=== PATIENT | female | born 1985 | race Caucasian/White ===

== ENCOUNTER → 2017-07-14 | Outpatient (CLI) | payer OTHER ==
[~2017-07-14] MED LIST: BUPR100CR PO; SERO25TA PO
== END ==
LOC: HPND 10:31
PROVIDERS: ATTEND Obstetrics & Gynecology
DX: O99.322 Drug use complicating pregnancy, second trimester (principal); O99.332 Smoking (tobacco) complicating pregnancy, second trimester; O09.292 Supervision of pregnancy with other poor reproductive or obstetric history, second trimester
CPT/HCPCS: 76811; 76825; 76827; 93325

== ENCOUNTER → 2017-08-17 | Outpatient (CLI) | payer OTHER | LOC: HPND 09:59 | PROVIDERS: ATTEND Obstetrics & Gynecology | DX: O99.322 Drug use complicating pregnancy, second trimester (principal); O09.292 Supervision of pregnancy with other poor reproductive or obstetric history, second trimester | CPT/HCPCS: 76816 ==

== ENCOUNTER 2017-09-20 18:46 | Inpatient (IN) ==
[2017-09-20] MEDS ORDERED: Betamethasone Sod Phos/Acetate Inj 30 MG/5 ML Vial IM ONE (20:11)
[2017-09-20] MEDS ORDERED: Acetaminophen 325 MG Tablet PO PRN (20:11)
[2017-09-20] MEDS ORDERED: Zolpidem Tartrate 5 MG Tablet PO PRN (20:11)
[2017-09-20] MEDS ORDERED: Docusate Sodium 100 MG Capsule PO PRN (20:11)
[2017-09-20] MEDS ORDERED: Azithromycin 250 MG Tablet PO ONE ×2 (20:11→21:45)
--- NOTE | 2017-09-20 20:29 | P.HPOB ---
History of Present Illness Primary Care Physician: NOT REQUIRED Chief Complaint: water broke History of Present Illness: Pt is a 31yr old at 33 weeks and 0 days who presented to the ED complaining of her water breaking. She states around 12 pm this afternoon, she felt baby move and saw a gush a clear fluid come down. She was seen at the ED in [place] where it was confirmed that her membranes had ruptured. She signed out AMA and came to [facility]. Pt has a history of premature labor with 2 or her 3 past deliveries, with 2 babies requiring NICU stay. Pt also has a history of Opioid use, currently taking Subutex (buprenorphine). Pt is also Hep C+, not treated. Pt has limited care at [facility], and plans to give the baby up for adoption. An adoptive family has already been selected and are advised of her water breaking. US today, showed baby is head down, records are being obtained. During this , pt has been taking phenegran for intractable nausea and vomiting. Pt denies any abnormal or bloody discharge, contractions, fever, headaches, N/V today. PT also denies burning with urination, but states increased frequency. Weeks Gestation:: 33 Para: 5 : 3 Total # of Miscarriage(s): 1 - Inpatient Certification If this patient has been admitted as an Inpatient: I certify that the inpatient services were ordered in accordance with Medicare regulations governing the order. This includes certification that hospital inpatient services are reasonable and necessary and in the case of services not specified as inpatient-only under 42 CFR 419.22(n), that they are appropriately provided as inpatient services in accordance to with the 2-midnight benchmark under 43 CFR 412.3(e) Plans for Post Hospital Care: Home Review of Systems Constitutional: Denies chills, Denies fever(s), Denies headache(s), Denies night sweats, Denies weakness Eyes: Denies blurry vision, Denies change in vision, Denies double vision Cardiovascular: Denies chest pain, Denies excessive sweating, Denies fainting, Denies fast heart rate, Denies radiating jaw, neck or arm pain, Denies rapid, pounding, or irregular heartbeat, Denies shortness of breath Respiratory: Reports cough, Denies chest congestion, Denies pain on inspiration , Denies shortness of breath, Denies wheezing Gastrointestinal: Reports constipation, Reports vomiting, Denies abdominal pain , Denies cramping, Denies loose stools, Denies nausea, Denies vomiting blood Genitourinary: Denies blood in urine, Denies painful urination, Denies urinary incontinence, Denies vaginal discharge Musculoskeletal: Reports back pain, Denies abnormal walking, Denies body aches, Denies joint pain, Denies muscle weakness, Denies numbness, Denies tingling Neurologic: Denies abnormal walking, Denies dizziness, Denies tingling, Denies tremor(s), Denies weakness Psychiatric: Reports abnormal sleep pattern Endocrine: Reports increased urination, Denies excessive sweating Allergic/Immunologic: Denies wheezing PMFSH - Medical History Medical History: Medical History (Last Updated 09/20/17 @ 20:27 by Morelia Miller) Gallbladder disease Hepatitis C - Surgical History Surgical History: Surgical History (Last Updated 09/20/17 @ 20:27 by Morelia Miller) Hx of cholecystectomy - Tobacco History Smoking Status: Heavy tobacco smoker Tobacco Type: Cigarettes Packs Per Day: 1 - Alcohol History How Often Do You Have a Drink Containing Alcohol: Monthly or less - Substance Use History Substance History: Active Abuse - Substance Use Type Marijuana Status: Active Route Used: By Mouth Opiates Status: Active Route Used: Intravenously - Travel History Recent Travel in the [place] Within the Last 8 Weeks: No Recent Travel Out of the Country Within the Last 8 Weeks: No Medications and Allergies Allergies Allergy/AdvReac Type Severity Reaction Status Date / Time amoxicillin Allergy Severe Anaphylaxis Verified 09/20/17 20:07 penicillin G Allergy Severe Anaphylaxis Verified 09/20/17 20:07 Home Medications Medication Instructions Recorded Confirmed Type [id number] 1 tab PO DAILY 09/20/17 09/20/17 History [ Gummy] buprenorphine HCl 8 mg SUBLINGUAL DAILY 09/20/17 09/20/17 History Exam Vital signs: Vital Signs 09/20/17 19:38 Temperature 98.8 F Pulse Rate 87 Respiratory Rate 18 Blood Pressure 115/65 Intake & Output 09/20/17 09/20/17 09/21/17 06:59 18:59 06:59 Weight 70.307 kg Narrative: GENERAL: Well-nourished, well-developed patient. SKIN: Warm and dry. HEAD: Normocephalic and atraumatic. EYES: No scleral icterus. No injection or drainage. ENT: No nasal drainage noted. Mucous membranes pink. Airway patent. NECK: Supple, trachea midline. No JVD. CARDIOVASCULAR: Regular rate and rhythm without murmurs, gallops, or rubs. RESPIRATORY: Breath sounds equal bilaterally. No accessory muscle use. ABDOMEN/GI: Abdomen soft, non-tender, bowel sounds present, no rebound, no guarding Gravid to [33] weeks size Fundal Height: [33] GENITOURINARY: Cervix: [-] Dilatation: [close] Effacement: [thick and high] Station: [-3] Presentation: [Cephalic] Membranes: [ruptured] Uterine Contractions: [N] FHT's: Category: [1] Baseline: [145] Reactive: [Y] Variability: [Moderate] Decels: [N] EXTREMITIES: No cyanosis or edema. BACK: Nontender without obvious deformity. No CVA tenderness. NEUROLOGICAL: Awake and alert. Motor and sensory grossly within normal limits. Five out of 5 muscle strength in all muscle groups. Normal speech. Results - Labs CBC & Chem 7: 09/20/17 20:48 09/20/17 20:48 Caprini VTE Risk Assessment Caprini VTE Risk Assessment: No/Low Risk (score <= 1) Caprini Risk Assessment Model: Point Value = 1 Point Value = 2 Point Value = 3 Point Value = 5 Age 41-60 Minor surgery BMI > 25 kg/m2 Swollen legs Varicose veins or History of unexplained or recurrent spontaneous Oral contraceptives or hormone replacement Sepsis (< 1 month) Serious lung disease, including pneumonia (< 1 month) Abnormal pulmonary function Acute myocardial infarction Congestive heart failure (< 1 month) History of inflammatory bowel disease Medical patient at bed rest Age 61-74 Arthroscopic surgery Major open surgery (> 45 min) Laparoscopic surgery (> 45 min) Malignancy Confined to bed (> 72 hours) Immobilizing plaster cast Central venous access Age >= 75 History of VTE Family history of VTE Factor V Leiden Prothrombin [id number] Lupus anticoagulant Anticardiolipin antibodies Elevated serum homocysteine Heparin-induced thrombocytopenia Other congenital or acquired thrombophilia Stroke (< 1 month) Elective arthroplasty Hip, pelvis, or leg fracture Acute spinal cord injury (< 1 month) Prophylaxis Regimen: Total Risk Factor Score Risk Level Prophylaxis Regimen 0-1 Low Early ambulation 2 Moderate Order ONE of the following: *Sequential Compression Device (SCD) *Heparin 5000 units SQ BID 3-4 Higher Order ONE of the following medications: *Heparin 5000 units SQ TID *Enoxaparin/Lovenox 40 mg SQ daily (WT < 150 kg, CrCl > 30 mL/min) *Enoxaparin/Lovenox 30 mg SQ daily (WT < 150 kg, CrCl > 10-29 mL/min) *Enoxaparin/Lovenox 30 mg SQ BID (WT < 150 kg, CrCl > 30 mL/min) AND/OR *Sequential Compression Device (SCD) 5 or more Highest Order ONE of the following medications: *Heparin 5000 units SQ TID (Preferred with Epidurals) *Enoxaparin/Lovenox 40 mg SQ daily (WT < 150 kg, CrCl > 30 mL/min) *Enoxaparin/Lovenox 30 mg SQ daily (WT < 150 kg, CrCl > 10-29 mL/min) *Enoxaparin/Lovenox 30 mg SQ BID (WT < 150 kg, CrCl > 30 mL/min) AND *Sequential Compression Device (SCD) Assessment and Plan - Diagnosis (1) premature rupture of membranes (PPROM) with unknown onset of labor Code(s): O42.919 - premature rupture of membranes, unspecified as to length of time between rupture and onset of labor, unspecified trimester Status: Acute (2) Smoking (tobacco) complicating , third trimester Code(s): O99.333 - Smoking (tobacco) complicating , third trimester Status: Acute (3) Opioid abuse Code(s): F11.10 - Opioid abuse, uncomplicated Status: Acute (4) Hx of pre-term labor Code(s): Z87.51 - Personal history of pre-term labor Status: Chronic (5) Hx of hepatitis C Code(s): Z86.19 - Personal history of other infectious and parasitic diseases Status: Chronic - Plan 31 yr old at 33 /0 admitted for premature PROM w/o onset of labor.Hx of opioid use IV and smoking during this . Hep C+. Possible meconium fluid. Limited care - Azithromycin 1 gr PO once - Clindamycin 900 mg q8 48 Hrs IV - Gentamicin 5 mg/kg (350mg) daily IV 48 hrs - Betamethasone 12mg q24hrs x2 - Following IV therapy will continue with Clindamycin 300 mg PO for 5 days - F/U labs: GBS, UA, GC/Ch, UDS, CMP, CBC, Hep Panel - Ob limited scan tomorrow - Consult MFM: Wednesday - Phenergan PRN for Nausea - Nicotine patch - Suboxone 8mg daily - Monitor for signs of infection - Monitor for signs of labor, monitoring D/w Dr. Fam and Dr. Winter
[2017-09-20 21:10] LABS: Bacteria,Urine Rare /hpf; Bilirubin,Urine Negative (Negative); Clarity,Urine Clear (Clear); Color,Urine Yellow (Yellw/Straw); Glucose,Urine (UA) Negative (Negative); Leukocyte Esterase,Urine Negative (Negative); Mucus,Urine Few /lpf (Occasional); Nitrite,Urine Negative (Negative); Specific Gravity,Urine 1.006 (1.002-1.035); Squamous Epithelial Cell,Urine 1 /hpf (0-5)
[2017-09-20 21:13] LABS: Amphetamine Screen,Urine Pos (Neg); Barbiturate Screen,Urine Neg (Neg); Cannabinoid Screen,Urine Neg (Neg); Cocaine Screen,Urine Neg (Neg)
[2017-09-20 21:15] LABS: Opiate Screen,Urine Neg (Neg)
[2017-09-20 21:18] LABS: Baso # (Auto) 0.1 th/mm3 (0.0-0.2); Baso % (Auto) 0.8 % (0.0-2.0); Eos # (Auto) 0.1 th/mm3 (0.0-0.4); Eos % (Auto) 0.9 % (0.0-4.0); Hematocrit 33.4 % (35.0-46.0); Hemoglobin 10.4 gm/dL (11.6-15.3); Lymph % (Auto) 25.9 % (9.0-44.0); Mean Corpuscular HGB Conc 31.2 % (32.0-36.0); Mean Corpuscular Hemoglobin 24.3 pg (27.0-34.0); Mean Corpuscular Volume 77.8 fL (80.0-100.0); Mean Platelet Volume 8.5 fL (7.0-11.0); Mono % (Auto) 6.4 % (0.0-8.0); Neut # (Auto) 10.1 th/mm3 (1.8-7.7); Platelet Count 423 th/mm3 (150-450); Red Blood Count 4.29 mil/mm3 (4.00-5.30); White Blood Count 15.3 th/mm3 (4.0-11.0)
[2017-09-20 21:32] LABS: Alanine Aminotransferase 47 U/L (10-53); Albumin 2.3 g/dL (3.4-5.0); Anion Gap 11 meq/L (5-15); Aspartate Aminotransferase 44 U/L (15-37); Blood Urea Nitrogen 8 mg/dL (7-18); Calcium 9.2 mg/dL (8.5-10.1); Carbon Dioxide 24.3 meq/L (21.0-32.0); Chloride 102 meq/L (98-107); Glomerular Filtration Rate 86 mL/min (>89); Glucose,Random 97 mg/dL (74-106); Potassium 3.8 meq/L (3.5-5.1); Sodium 137 meq/L (136-145)
[2017-09-20 21:35] LABS: Alkaline Phosphatase 189 U/L (45-117); Total Protein 7.3 g/dL (6.4-8.2)
[2017-09-20 21:54] LABS: Platelet Estimate Normal (Normal); Platelet Morphology Normal (Normal)
[2017-09-20] MEDS ORDERED: Calcium Chloride Inj 1 GM in Sodium Chlor 0.9% Inj 100 ML IV.SIG ONE (22:00)
[2017-09-20 22:55] LABS: Hepatitis A IgM Antibody Nonreactive (Nonreactive); Hepatitits B Surface Antigen Nonreactive (Nonreactive)
[2017-09-20] MEDS ORDERED: SODIUM CHLOR 0.9% IV.SIG SCH (23:00)
[2017-09-20] MEDS ORDERED: GENTAMICIN IV.SIG SCH (23:00)
[2017-09-20] MEDS: Clindamycin 900 mg/NS Premix 900 MG/50 ML PIGGYBACK IV.SIG SCH (23:08)
[2017-09-21] MEDS: Clindamycin 900 mg/NS Premix 900 MG/50 ML PIGGYBACK IV.SIG SCH ×2 (06:11→13:57)
[2017-09-21 08:19] LABS: Baso # (Auto) 0.1 th/mm3 (0.0-0.2); Baso % (Auto) 0.6 % (0.0-2.0); Hematocrit 28.2 % (35.0-46.0); Lymph # (Auto) 2.2 th/mm3 (1.0-4.8); Lymph % (Auto) 16.9 % (9.0-44.0); Mean Corpuscular HGB Conc 31.7 % (32.0-36.0); Mean Corpuscular Hemoglobin 24.2 pg (27.0-34.0); Mean Corpuscular Volume 76.4 fL (80.0-100.0); Mean Platelet Volume 7.9 fL (7.0-11.0); Mono # (Auto) 0.3 th/mm3 (0.0-0.9); Mono % (Auto) 2.2 % (0.0-8.0); Neut # (Auto) 10.4 th/mm3 (1.8-7.7); Neut % (Auto) 80.3 % (16.0-70.0); Platelet Count 390 th/mm3 (150-450); Red Cell Distribution Width 17.4 % (11.6-17.2)
[2017-09-21] MEDS ORDERED: [UNRECOGNIZED DRUG - OTHER] PO SCH (09:00)
[2017-09-21] MEDS ORDERED: Prenatal Vit/Ca/Iron/Folic Acid Tablet PO SCH (09:00)
[2017-09-21] MEDS ORDERED: ALPRAZolam 0.25 MG Tablet PO ONE (10:45)
[2017-09-21] MEDS ORDERED: LORazepam 0.5 MG Tablet PO ONE (10:52)
--- NOTE | 2017-09-21 10:55 | P.PN ---
Subjective Interval history: Patient is a 31 year-old with IUP at 33.1. The patient was admitted for PPROM. The patient is threatening to leave against medical advice is she is not allowed to leave to smoke a cigarette. I discussed with the patient that I am not allowed to let her leave to smoke as this is against hospital policy. She stated she would just leave against medical advice if we don't allow her to leave. She stated she would just leave in her gown with her IV. I informed her the IV would be removed prior to leaving the hospital. I discussed she would need to be readmitted and leaving against medical advice is not in her best interest or that of the fetus. I discussed that risks of leaving against medical advice include but are not limited to maternal or , brain damage, or other adverse outcomes. The patient stated she "didn't care" and refused to have any further discussion. I offered her antianxiety medication which she is refusing at this time. Physical Exam Vital signs: Vital Signs 09/20/17 19:38 09/20/17 21:13 09/20/17 22:00 Temperature 98.8 F 98.7 F Pulse Rate 87 83 Respiratory Rate 18 18 18 Blood Pressure 115/65 117/74 09/21/17 00:00 09/21/17 00:34 09/21/17 01:59 Temperature Pulse Rate 67 Respiratory Rate 18 1 L 18 Blood Pressure 106/63 09/21/17 03:00 09/21/17 04:00 09/21/17 05:00 Temperature Pulse Rate Respiratory Rate 18 18 18 Blood Pressure 09/21/17 05:10 09/21/17 05:11 09/21/17 09:01 Temperature 97.9 F 98.0 F Pulse Rate 66 78 Respiratory Rate 18 18 Blood Pressure 95/57 L 106/64 Intake & Output 09/20/17 09/21/17 09/21/17 18:59 06:59 18:59 Intake Total 2157.75 / 2157.75 Balance 2157.75 / 2157.75 Weight 70.307 kg Intake: IV 2157.75 / 2157.75 LR 1000 mL Inj 1,000 ML @ 125 2000 / 2000 mls/hr IV.CONT .Q8H [facility] Rx#: [id number] Cleocin 900 mg/NS Premix 900 mg 50 / 50 In 50 ml @ 100 mls/hr IV.SIG Q8H [facility] Rx#:[id number] Gentamicin Inj 350 MG In NS Inj 108.75 / 108.75 100 ML @ 100 mls/hr IV.SIG Q24H [facility] Rx#:[id number] Results - Labs CBC & Chem 7: 09/21/17 07:55 09/20/17 20:48 Laboratory Results - last 24 hr 09/20/17 09/20/17 09/20/17 20:24 20:24 20:24 WBC RBC Hgb Hct MCV MCH MCHC RDW Plt Count MPV Prelim Diff (Auto) Neut % (Auto) Lymph % (Auto) [place] % (Auto) Eos % (Auto) Baso % (Auto) Neut # (Auto) Lymph # (Auto) [place] # (Auto) Eos # (Auto) Baso # (Auto) WBC Differential Diff Scan Differential Comment Platelet Estimate Platelet Morphology Sodium Potassium Chloride Carbon Dioxide Anion Gap BUN Creatinine Estimated GFR Random Glucose Calcium Total Bilirubin AST ALT Alkaline Phosphatase Total Protein Albumin Urine Color Yellow Urine Clarity Clear Urine pH 7.0 Ur Specific [place] 1.006 Urine Protein Negative Urine Glucose (UA) Negative Urine Ketones Negative Urine Occult Blood Negative Urine Nitrate Negative Urine Bilirubin Negative Urine Urobilinogen Less than 2 Ur Leukocyte Esterase Negative Urine RBC 1 Urine WBC 1 Ur Squamous Epith Cells 1 Urine Bacteria Rare H Urine Mucus Few H Micro UA Comment Culture not ind Urine Culture Comments Culture not ind Urine Opiates Screen Neg Ur Barbiturates Screen Neg Ur Amphetamines Screen Pos H U Benzodiazepines Scrn Neg Urine Cocaine Screen Neg U Cannabinoids Screen Neg Chlam trachomat DNA PCR Not detected Hepatitis A IgM Ab Hep Bs Antigen Hep B Core IgM Ab Hep C IgG Ab N.gonorrhoeae DNA (PCR) Not detected Group B Strep (PCR) 09/20/17 09/20/17 09/20/17 20:48 20:48 20:48 WBC 15.3 H RBC 4.29 Hgb 10.4 L Hct 33.4 L MCV 77.8 L MCH 24.3 L MCHC 31.2 L RDW 17.0 Plt Count 423 MPV 8.5 Prelim Diff (Auto) Slide review pending Neut % (Auto) 66.0 Lymph % (Auto) 25.9 [place] % (Auto) 6.4 Eos % (Auto) 0.9 Baso % (Auto) 0.8 Neut # (Auto) 10.1 H Lymph # (Auto) 4.0 [place] # (Auto) 1.0 H Eos # (Auto) 0.1 Baso # (Auto) 0.1 WBC Differential . Diff Scan Auto diff confirmed Differential Comment . Platelet Estimate Normal Platelet Morphology Normal Sodium 137 Potassium 3.8 Chloride 102 Carbon Dioxide 24.3 Anion Gap 11 BUN 8 Creatinine 0.79 Estimated GFR 86 L Random Glucose 97 Calcium 9.2 Total Bilirubin 0.4 AST 44 H ALT 47 Alkaline Phosphatase 189 H Total Protein 7.3 Albumin 2.3 L Urine Color Urine Clarity Urine pH Ur Specific [place] Urine Protein Urine Glucose (UA) Urine Ketones Urine Occult Blood Urine Nitrate Urine Bilirubin Urine Urobilinogen Ur Leukocyte Esterase Urine RBC Urine WBC Ur Squamous Epith Cells Urine Bacteria Urine Mucus Micro UA Comment Urine Culture Comments Urine Opiates Screen Ur Barbiturates Screen Ur Amphetamines Screen U Benzodiazepines Scrn Urine Cocaine Screen U Cannabinoids Screen Chlam trachomat DNA PCR Hepatitis A IgM Ab Nonreactive Hep Bs Antigen Nonreactive Hep B Core IgM Ab Nonreactive Hep C IgG Ab Reactive H N.gonorrhoeae DNA (PCR) Group B Strep (PCR) 09/20/17 09/21/17 21:15 07:55 WBC 13.0 H RBC 3.70 L Hgb 9.0 L Hct 28.2 L MCV 76.4 L MCH 24.2 L MCHC 31.7 L RDW 17.4 H Plt Count 390 MPV 7.9 Prelim Diff (Auto) Neut % (Auto) 80.3 H Lymph % (Auto) 16.9 [place] % (Auto) 2.2 Eos % (Auto) 0.0 Baso % (Auto) 0.6 Neut # (Auto) 10.4 H Lymph # (Auto) 2.2 [place] # (Auto) 0.3 Eos # (Auto) 0.0 Baso # (Auto) 0.1 WBC Differential . Diff Scan Differential Comment Auto diff final Platelet Estimate Platelet Morphology Sodium Potassium Chloride Carbon Dioxide Anion Gap BUN Creatinine Estimated GFR Random Glucose Calcium Total Bilirubin AST ALT Alkaline Phosphatase Total Protein Albumin Urine Color Urine Clarity Urine pH Ur Specific [place] Urine Protein Urine Glucose (UA) Urine Ketones Urine Occult Blood Urine Nitrate Urine Bilirubin Urine Urobilinogen Ur Leukocyte Esterase Urine RBC Urine WBC Ur Squamous Epith Cells Urine Bacteria Urine Mucus Micro UA Comment Urine Culture Comments Urine Opiates Screen Ur Barbiturates Screen Ur Amphetamines Screen U Benzodiazepines Scrn Urine Cocaine Screen U Cannabinoids Screen Chlam trachomat DNA PCR Hepatitis A IgM Ab Hep Bs Antigen Hep B Core IgM Ab Hep C IgG Ab N.gonorrhoeae DNA (PCR) Group B Strep (PCR) Negative
--- NOTE | 2017-09-21 18:39 | P.PN ---
Subjective Interval history: The patient is again declaring she is going to leave against medical advice. She was counseled by the nurse, nurse manager environmental affairs, and myself as to potential risks of such including but not limited to and/or maternal or brain damage. The patient refuses to have a discussion and states she is going to go to [facility] which is where she wanted to go in the first place because they have better food. She reports she signed out of [place] yesterday and came here. Physical Exam Vital signs: Vital Signs 09/20/17 19:38 09/20/17 21:13 09/20/17 22:00 Temperature 98.8 F 98.7 F Pulse Rate 87 83 Respiratory Rate 18 18 18 Blood Pressure 115/65 117/74 09/21/17 00:00 09/21/17 00:34 09/21/17 01:59 Temperature Pulse Rate 67 Respiratory Rate 18 1 L 18 Blood Pressure 106/63 09/21/17 03:00 09/21/17 04:00 09/21/17 05:00 Temperature Pulse Rate Respiratory Rate 18 18 18 Blood Pressure 09/21/17 05:10 09/21/17 05:11 09/21/17 09:01 Temperature 97.9 F 98.0 F Pulse Rate 66 78 Respiratory Rate 18 18 Blood Pressure 95/57 L 106/64 09/21/17 14:00 09/21/17 17:58 09/21/17 18:00 Temperature 98.0 F 97.6 F Pulse Rate 82 73 Respiratory Rate 18 24 Blood Pressure 108/75 111/74 Intake & Output 09/20/17 09/21/17 09/21/17 18:59 06:59 18:59 Intake Total 2208.75 / 2208.75 1000 / 1000 Balance 2208.75 / 2208.75 1000 / 1000 Weight 70.307 kg Intake: IV 2208.75 / 2208.75 1000 / 1000 LR 1000 mL Inj 1,000 ML @ 125 2000 / 2000 1000 / 1000 mls/hr IV.CONT .Q8H [facility] Rx#: [id number] Cleocin 900 mg/NS Premix 900 mg 100 / 100 In 50 ml @ 100 mls/hr IV.SIG Q8H [facility] Rx#:[id number] Gentamicin Inj 350 MG In NS Inj 108.75 / 108.75 100 ML @ 100 mls/hr IV.SIG Q24H [facility] Rx#:[id number] Results - Labs CBC & Chem 7: 09/21/17 07:55 09/20/17 20:48 Laboratory Results - last 24 hr 09/20/17 09/20/17 09/20/17 20:24 20:24 20:24 WBC RBC Hgb Hct MCV MCH MCHC RDW Plt Count MPV Prelim Diff (Auto) Neut % (Auto) Lymph % (Auto) [place] % (Auto) Eos % (Auto) Baso % (Auto) Neut # (Auto) Lymph # (Auto) [place] # (Auto) Eos # (Auto) Baso # (Auto) WBC Differential Diff Scan Differential Comment Platelet Estimate Platelet Morphology Sodium Potassium Chloride Carbon Dioxide Anion Gap BUN Creatinine Estimated GFR Random Glucose Calcium Total Bilirubin AST ALT Alkaline Phosphatase Total Protein Albumin Urine Color Yellow Urine Clarity Clear Urine pH 7.0 Ur Specific [place] 1.006 Urine Protein Negative Urine Glucose (UA) Negative Urine Ketones Negative Urine Occult Blood Negative Urine Nitrate Negative Urine Bilirubin Negative Urine Urobilinogen Less than 2 Ur Leukocyte Esterase Negative Urine RBC 1 Urine WBC 1 Ur Squamous Epith Cells 1 Urine Bacteria Rare H Urine Mucus Few H Micro UA Comment Culture not ind Urine Culture Comments Culture not ind Urine Opiates Screen Neg Ur Barbiturates Screen Neg Ur Amphetamines Screen Pos H U Benzodiazepines Scrn Neg Urine Cocaine Screen Neg U Cannabinoids Screen Neg Chlam trachomat DNA PCR Not detected Hepatitis A IgM Ab Hep Bs Antigen Hep B Core IgM Ab Hep C IgG Ab N.gonorrhoeae DNA (PCR) Not detected Group B Strep (PCR) 09/20/17 09/20/17 09/20/17 20:48 20:48 20:48 WBC 15.3 H RBC 4.29 Hgb 10.4 L Hct 33.4 L MCV 77.8 L MCH 24.3 L MCHC 31.2 L RDW 17.0 Plt Count 423 MPV 8.5 Prelim Diff (Auto) Slide review pending Neut % (Auto) 66.0 Lymph % (Auto) 25.9 [place] % (Auto) 6.4 Eos % (Auto) 0.9 Baso % (Auto) 0.8 Neut # (Auto) 10.1 H Lymph # (Auto) 4.0 [place] # (Auto) 1.0 H Eos # (Auto) 0.1 Baso # (Auto) 0.1 WBC Differential . Diff Scan Auto diff confirmed Differential Comment . Platelet Estimate Normal Platelet Morphology Normal Sodium 137 Potassium 3.8 Chloride 102 Carbon Dioxide 24.3 Anion Gap 11 BUN 8 Creatinine 0.79 Estimated GFR 86 L Random Glucose 97 Calcium 9.2 Total Bilirubin 0.4 AST 44 H ALT 47 Alkaline Phosphatase 189 H Total Protein 7.3 Albumin 2.3 L Urine Color Urine Clarity Urine pH Ur Specific [place] Urine Protein Urine Glucose (UA) Urine Ketones Urine Occult Blood Urine Nitrate Urine Bilirubin Urine Urobilinogen Ur Leukocyte Esterase Urine RBC Urine WBC Ur Squamous Epith Cells Urine Bacteria Urine Mucus Micro UA Comment Urine Culture Comments Urine Opiates Screen Ur Barbiturates Screen Ur Amphetamines Screen U Benzodiazepines Scrn Urine Cocaine Screen U Cannabinoids Screen Chlam trachomat DNA PCR Hepatitis A IgM Ab Nonreactive Hep Bs Antigen Nonreactive Hep B Core IgM Ab Nonreactive Hep C IgG Ab Reactive H N.gonorrhoeae DNA (PCR) Group B Strep (PCR) 09/20/17 09/21/17 21:15 07:55 WBC 13.0 H RBC 3.70 L Hgb 9.0 L Hct 28.2 L MCV 76.4 L MCH 24.2 L MCHC 31.7 L RDW 17.4 H Plt Count 390 MPV 7.9 Prelim Diff (Auto) Neut % (Auto) 80.3 H Lymph % (Auto) 16.9 [place] % (Auto) 2.2 Eos % (Auto) 0.0 Baso % (Auto) 0.6 Neut # (Auto) 10.4 H Lymph # (Auto) 2.2 [place] # (Auto) 0.3 Eos # (Auto) 0.0 Baso # (Auto) 0.1 WBC Differential . Diff Scan Differential Comment Auto diff final Platelet Estimate Platelet Morphology Sodium Potassium Chloride Carbon Dioxide Anion Gap BUN Creatinine Estimated GFR Random Glucose Calcium Total Bilirubin AST ALT Alkaline Phosphatase Total Protein Albumin Urine Color Urine Clarity Urine pH Ur Specific [place] Urine Protein Urine Glucose (UA) Urine Ketones Urine Occult Blood Urine Nitrate Urine Bilirubin Urine Urobilinogen Ur Leukocyte Esterase Urine RBC Urine WBC Ur Squamous Epith Cells Urine Bacteria Urine Mucus Micro UA Comment Urine Culture Comments Urine Opiates Screen Ur Barbiturates Screen Ur Amphetamines Screen U Benzodiazepines Scrn Urine Cocaine Screen U Cannabinoids Screen Chlam trachomat DNA PCR Hepatitis A IgM Ab Hep Bs Antigen Hep B Core IgM Ab Hep C IgG Ab N.gonorrhoeae DNA (PCR) Group B Strep (PCR) Negative Microbiology 09/20/17 21:15 Genital - Genital Region Group B Streptococcus Screen ([place]) - Preliminary Results Pending
[2017-09-21] MEDS ORDERED: Clindamycin Inj 900 MG in Sodium Chlor 0.9% Inj 100 ML IV.SIG SCH (22:00)
== END 2017-09-21 19:03 | disposition left against medical advice (07) ==
LOC: HOBED 18:46 → H2E 20:13
PROVIDERS: ADMIT Obstetrics & Gynecology Maternal & Fetal Medicine; ATTEND Obstetrics & Gynecology Maternal & Fetal Medicine